=== PATIENT | female | born 1970 | race Caucasian/White ===

== ENCOUNTER 2018-01-11 09:01 | Emergency (ER) | payer SELFPAY ==
[~2018-01-11] VITALS: Ht 160 cm; Wt 60.0 kg
[2018-01-11] MEDS ORDERED: LISI2.5T47 PO (09:06)
[2018-01-11 09:47] LABS: HEMATOCRIT. 30.7 % (36.0-48.0); HEMOGLOBIN. 9.4 g/dL (12.0-16.0); MEAN CORPUSCULAR HEMOGLOBIN 20.3 pg (28.0-32.0); MEAN CORPUSCULAR VOLUME 66.6 fL (81.0-99.0); MEAN PLATELET VOLUME 9.2 fl (7.4-10.4); PLATELET 321 x1000/uL (130-400); RED BLOOD CELL COUNT 4.61 mill/uL (4.2-5.4); RED CELL DISTRIBUTION WIDTH 19.8 % (11.6-14.6)
[2018-01-11 09:50] LABS: INR 1.1; PROTHROMBIN TIME 11.1 sec (9.4-11.6)
[2018-01-11 09:59] LABS: CHLORIDE 108 mEq/L (98-107)
[2018-01-11 10:01] LABS: TROPONIN I < 0.02 ng/mL (0.00-0.04)
[2018-01-11] MEDS ORDERED: LISINOPRIL 5MG TABLET PO ONE (10:30)
[2018-01-11 10:53] VITALS: BP 138/71
[2018-01-11 11:05] LABS: PLATELET ESTIMATE NORMAL
== END 2018-01-11 10:55 | disposition home or self-care (01) ==
LOC: ER 09:47
DX: R55 Syncope and collapse (principal); R42 Dizziness and giddiness; R11.0 Nausea; D50.9 Iron deficiency anemia, unspecified; E78.5 Hyperlipidemia, unspecified; I10 Essential (primary) hypertension; Z91.19 Patient's noncompliance with other medical treatment and regimen; E87.6 Hypokalemia; Z90.49 Acquired absence of other specified parts of digestive tract; Z98.51 Tubal ligation status
CPT/HCPCS: 36415; 71045; 80053; 83880; 84484; 85025; 85610; 93005; 99285